=== PATIENT | male | born 1970 | race African-American/Black ===

== ENCOUNTER 2017-01-03 06:13 | Emergency (ER) | payer SELFPAY ==
[2017-01-03 06:19] VITALS: BP 118/75; BMI 39.5
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
[2017-01-03] MEDS ORDERED: ULTRAM PO ONE (06:30)
[2017-01-03] MEDS ORDERED: ULTRAM ONE (06:39)
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
== END 2017-01-03 07:52 | disposition home or self-care (01) ==
LOC: ER 06:13
DX: S20.212A Contusion of left front wall of thorax, initial encounter (principal); Y33.XXXA Other specified events, undetermined intent, initial encounter
CPT/HCPCS: 71020; 99282